=== PATIENT | male | born 1995 | race Caucasian/White ===

== ENCOUNTER 2024-10-09 22:10 | Emergency (ER) | payer OTHER, SELFPAY ==
[2024-10-09 22:11] VITALS: BP 166/118
--- NOTE | 2024-10-09 22:48 | ED.GENMED ---
History of Present Illness
General
Chief Complaint: Withdrawal Symptoms
Source: patient and family
Exam Limitations: none
Time Seen by Provider: 10/09/24 22:38
Nursing documentation reviewed up to this point in time: agreed with
History of Present Illness
History of Present Illness:
Patient with history chronic alcoholism, presents to ED secondary to 2-day history of persistent 'withdrawal symptoms', consisting of nausea, vomiting, diarrhea, and inability to eat. Patient has had similar symptoms in the past. Denies fever or
chills. Denies coughing. Denies dizziness. Denies headache. Denies suicidal or homicidal ideation.
Past History
Social History
Alcohol: Chronic alcoholic
Drug: None
Personal: Single
Living: with family
Employment: Not employed
Family History
Family History: Other (Noncontributory)
Review of Systems
Review of Systems
Allergies reviewed?: Yes
All Other Systems: ROS reviewed and negative except as documented in HPI and ROS
Constitutional: Reports no symptoms; Denies fever
Respiratory: Reports no symptoms; Denies trouble breathing
Cardiac: Reports no symptoms; Denies chest pain or palpitations
ABD/GI: Reports nausea, vomiting and diarrhea; Denies abdominal pain
: Reports no symptoms
Musculoskeletal: Reports no symptoms
Skin: Reports no symptoms
Phy Exam
Physical Exam
Physical Exam:
Physical Exam
General: mild distress, not acutely ill. afebrile
Head: nc/at. eomi
Neck: supple. no meningeal signs.
Heart: tachycardic
Lungs: no acute respiratory distress. clear bilaterally
Abdomen: normal bowel sounds. not tender.
Neuro: alert and oriented x 3. no focal neurological deficits
Skin: no rash
Psychiatric: well kept. interactive and cooperative
Extremities: no edema. no calf tenderness.
Course
Orders/Labs/Results
Orders:
Orders
10/09/24 22:14
Electrocardiogram (*1) Urgent
Reason for Study: Tachycardia
10/09/24 22:15
EKG- Treatment ONCE
10/09/24 22:43
0.9% Sodium Chloride 1000 ml [Nss] 1,000 ml IV BOLUS
Pantoprazole [Protonix IV] 40 mg IV NOW STA
diazePAM [Valium Injection] 2 mg IV NOW STA
10/09/24 22:44
Ondansetron Injectable [Zofran] 4 mg IV NOW STA
10/09/24 23:00
Pantoprazole [Protonix IV] 40 mg .ROUTE .STK-MED ONE
10/09/24 23:07
Alcohol Urgent
Complete Blood Count/With Diff Urgent
Comprehensive Metabolic Panel Urgent
Magnesium Urgent
10/10/24 00:24
Magnesium Sulfate 1 grams 0.9% Sodium Chloride 100 ml [Nss] 100 ml IV NOW
10/10/24 00:52
0.9% Sodium Chloride 500 ml [Nss] 500 ml IV BOLUS
Ondansetron Injectable [Zofran] 4 mg IV NOW STA
10/10/24 02:13
Lorazepam [Ativan] 1 mg PO NOW STA
Abnormal Lab Results
10/09/24
23:07
RBC 4.23 L 10^6/uL
(4.70-6.10)
MCH 32.2 H pg
(27.0-31.0)
Abs Immat Gran (auto) 0.1 H 10^3/uL
(0-0.05)
Absolute Lymphs (auto) 0.8 L 10^3/uL
(1.2-3.4)
Absolute Monos (auto) 1.1 H 10^3/uL
(0.1-0.6)
Immature Gran % 1.1 H %
(0-0.5)
Lymphocytes % 12.3 L %
(20.5-51.1)
Monocytes % 16.3 H %
(1.7-9.3)
Sodium 134 L mmol/L
(135-145)
Chloride 93 L mmol/L
(98-107)
Glucose 133 H mg/dl
(70-99)
Magnesium 1.5 L mg/dl
(1.6-2.3)
AST 71 H U/L
(17-59)
ALT 105 H U/L
(0-50)
10/09/24 23:07
10/09/24 23:07
Vital Signs
Initial and Last Documented VS:
Initial Vital Signs
Temp Pulse Resp BP Pulse Ox
99.6 F 136 20 166/118 98
10/09/24 22:11 10/09/24 22:11 10/09/24 22:11 10/09/24 22:11 10/09/24 22:11
Last Documented Vital Signs
Temp Pulse Resp BP Pulse Ox
98.4 F 115 20 133/96 96
10/10/24 01:14 10/10/24 02:00 10/10/24 00:00 10/10/24 02:00 10/10/24 02:00
MDM/Problems Addressed
MDM/Problems Addressed:
History and exam concerning for alcohol dependence follow-up with evidence of significant alcohol withdrawal symptoms.
Patient evaluated by Hollie from [facility]. Pt will be transitioned to in-patient alcohol detox facility for further evaluation and treatment.
*Pulse Oximetry
SaO2: 98
Oxygen Mode of Delivery: Room air
Patient hypoxic: no
*EKG
Interpreted by ED Provider?: Yes
EKG Intrepretation Date: 10/09/24
Heart Rate: 113
Rate: tachycardiac
Rhythm: sinus
[place]: normal axis
Interval: normal interval
*Critical Care Note
Total Time (30-74mins, 75-104mins- exclusive of procedures): Not Applicable
ED Attending Note
-
Portions of this chart may have been created with voice recognition software.� Occasional wrong word or��sound alike� substitutions may have occurred due to the inherent limitations of voice recognition software.
Discharge Plan
Departure
Patient Disposition: Acute Rehab Facility
Date of Disposition: 10/10/24
Time of Disposition: 02:13
Discharge Problem:
Alcohol dependence, Alcohol withdrawal
Instructions: Alcohol Withdrawal (DC), Alcohol Use Disorder (DC)
Prescriptions:
No Action
ondansetron 4 mg tablet,disintegrating
4 mg PO Q8H PRN (Reason: nausea and vomiting) Qty: 14 0RF
Referrals:
UNKNOWN - PT DOES,NOT KNOW [Family Provider]
Activity Restrictions/Additional Instructions:
As discussed, you are being discharged to [facility] for further evaluation and treatment.
Interventions
Interventions:
*Risk Screen - Suicide Last Done: 10/09/24 23:15
*General Assessment Last Done: 10/09/24 23:15
*Neglect/Abuse Screening Last Done: 10/09/24 23:15
*ED- Fall Risk Assessment Last Done: 10/09/24 23:15
*ED COVID-19 Vaccine History Last Done: 10/09/24 23:15
*Nursing Disposition Last Done: 10/10/24 03:23
ED- Neurological Assessment Last Done: 10/09/24 23:17
ED-Psychological Assessment Last Done: 10/09/24 23:17
Discharge Date and Time
Discharge Date/Time: 10/10/24 03:24
Print Language: HUNGARIAN
[2024-10-09 22:51] VITALS: BMI 26.0
[2024-10-09] MEDS: VALIUM INJECTION 2 MG IV (23:10)
[2024-10-09] MEDS: ZOFRAN 4 MG IV (23:10)
[2024-10-09] MEDS: PROTONIX IV 40 MG IV (23:10)
[2024-10-09 23:15] LABS: Hematocrit 39.1 % (39.0-52.0); Hemoglobin 13.6 g/dL (13.0-18.0); Mean Corp Hgb Conc. 34.8 g/dL (33.0-37.0); Mean Corpuscular Volume 92.4 fL (80.0-94.0); Nucleated Red Blood Cells % 0 % (-); Platelet Count 155 10^3/uL (130-400); Red Cell Dist. Width 12.6 % (11.5-14.5)
[2024-10-09] MEDS: NSS 1000 IV (23:15)
[2024-10-09 23:22] VITALS: BP 128/101
[2024-10-09 23:32] LABS: ALT (SGPT) 105 U/L (0-50); AST (SGOT) 71 U/L (17-59); Albumin 5.0 g/dl (3.5-5.0); Alkaline Phosphatase 69 U/L (38-126); Blood Urea Nitrogen 10 mg/dl (9-20); Calcium 9.4 mg/dl (8.4-10.2); Carbon Dioxide 27 mmol/L (22-30); Chloride 93 mmol/L (98-107); Estimated Creatinine Clearance > 125 ml/min; Glucose 133 mg/dl (70-99); Magnesium 1.5 mg/dl (1.6-2.3); Potassium 3.7 mmol/L (3.5-5.1); Sodium 134 mmol/L (135-145); Total Protein 8.0 g/dl (6.3-8.2); eGFR > 60.00
[2024-10-10] VITALS: BP 127/96
[2024-10-10] MEDS: MAGNESIUM SULFATE 102 GRAMS IV (00:38)
[2024-10-10 01:00] VITALS: BP 139/106
[2024-10-10] MEDS: ZOFRAN 4 MG IV (01:01)
[2024-10-10] MEDS: NSS 500 IV (01:04)
[2024-10-10 02:00] VITALS: BP 133/96
[2024-10-10] MEDS: ATIVAN 1 MG PO (02:22)
== END 2024-10-10 03:24 ==
LOC: EMR 22:10
PROVIDERS: Emergency Medicine; EMERGENCY PHYSICIAN Emergency Medicine
DX: F10.239 Alcohol dependence with withdrawal, unspecified (principal)
CPT/HCPCS: 99285; 96365; 96374; 96375 ×4; 96376; 96361 ×2; 80053; 82077; 83735; 85025

== ENCOUNTER → 2024-11-10 14:58 | Outpatient (REF) | payer OTHER, SELFPAY | LOC: HWRAD 14:58 | PROVIDERS: ATTENDING PHYSICIAN Physician Assistant | DX: R79.89 Other specified abnormal findings of blood chemistry (principal); E78.00 Pure hypercholesterolemia, unspecified; F10.90 Alcohol use, unspecified, uncomplicated | CPT/HCPCS: 76700 ==